=== PATIENT | male | born 1990 | race Two or more races ===

== ENCOUNTER 2021-09-01 06:22 | Emergency (ER) | payer SELFPAY ==
[~2021-09-01] VITALS: Ht 177.8 cm; Wt 76.2 kg
[2021-09-01] MEDS ORDERED: IV NS 0.9% 1,000 ML BAG IV ONE (07:30)
[2021-09-01] MEDS ORDERED: METOCLOPRAMIDE HCL 10 MG/2 ML VIAL IV ONE (07:30)
[2021-09-01] MEDS ORDERED: KETOROLAC TROMETHAMINE INJ 60 MG/2 ML VIAL IM ONE (07:30)
[2021-09-01] MEDS ORDERED: diphenhydrAMINE HCL 50 MG/ML VIAL IV ONE (07:30)
[2021-09-01] MEDS ORDERED: KETOROLAC TROMETHAMINE INJ 30 MG/ML VIAL ONE (07:53)
[2021-09-01] MEDS ORDERED: diphenhydrAMINE HCL 50 MG/ML VIAL ONE (07:53)
[2021-09-01] MEDS ORDERED: METOCLOPRAMIDE HCL 10 MG/2 ML VIAL ONE (07:53)
--- NOTE | 2021-09-01 08:00 | NUR ---
PATY 89 FROM HOME FOR C/O H/A. RATES PAIN 8/10. IN ROOM AIR AND DENIES SOB. RESPIRATION REGULAR AND UNLABORED. WILL CONTINUE TO MONITOR THE PATIENT.
--- NOTE | 2021-09-01 11:11 | NUR ---
The patient is alert and oriented x4. Denies pain. In room air and denies SOB. Respiration regular and unlabored. IV removed. Catheter intact and site benign. Pressure and 4x4 applied to site. No bleeding noted.Patient discharged to home in stable condition. Written and verbal after care instructions given. Patient verbalizes understanding of instruction.
[2021-09-01 11:12] VITALS: BP 126/76
== END 2021-09-01 11:12 | disposition home or self-care (01) ==
LOC: ER 06:24
DX: G43.909 Migraine, unspecified, not intractable, without status migrainosus (principal)
CPT/HCPCS: 96361; 96372; 96374; 96375; 99284; J1200; J1885; J2765; J7030 ×2

== ENCOUNTER 2023-09-18 04:53 | Emergency (ER) | payer SELFPAY ==
[~2023-09-18] VITALS: Ht 177.8 cm; Wt 79.4 kg
[2023-09-18] MEDS ORDERED: LORAZEPAM INJ 2 MG/ML VIAL ONE (06:34)
[2023-09-18] MEDS: LORAZEPAM INJ 2 MG/ML VIAL IV ONE (06:44)
[2023-09-18 07:11] LABS: BASOPHILS # (AUTO) 0.1 K/uL (0.0-0.2); BASOPHILS % (AUTO) 2.5 % (0.0-2.0); EOSINOPHILS # (AUTO) 0.1 K/uL (0.0-0.7); EOSINOPHILS % (AUTO) 2.7 % (0.0-6.0); HEMATOCRIT 44 % (39-51); HEMOGLOBIN 15.8 g/dL (13.5-17.5); LYMPHOCYTES # (AUTO) 2.3 K/uL (0.8-4.8); LYMPHOCYTES % (AUTO) 42.7 % (20.0-44.0); MEAN CORPUSCULAR HEMOGLOBIN 32 PG (26.0-33.0); MEAN CORPUSCULAR HGB CONC 36 g/dl (31.0-36.0); MEAN CORPUSCULAR VOLUME 90 fL (80-96); MONOCYTES # (AUTO) 0.3 K/uL (0.1-1.30); NEUTROPHILS # (AUTO) 2.5 K/uL (1.8-8.9); NEUTROPHILS % (AUTO) 46.1 % (43.0-81.0); PLATELET COUNT (AUTO) 258 K/uL (150-450); RED BLOOD CELL COUNT(AUTO) 4.92 MIL/uL (4.5-6.0); RED CELL DISTRIBUTION WIDTH 13.5 % (11.5-15.0); WHITE BLOOD COUNT (AUTO) 5.5 K/uL (4.3-11.0)
[2023-09-18 07:43] LABS: ALANINE AMINOTRANSFERASE 257 U/L (12-78); ALBUMIN 4.3 g/dL (3.4-5.0); ALKALINE PHOSPHATASE 143 U/L (46-116); ASPARTATE AMINOTRANSFERASE 124 U/L (15-37); BILIRUBIN,DIRECT 0.3 mg/dL (0.0-0.2); CALCIUM, SERUM 8.9 mg/dL (8.5-10.1); CARBON DIOXIDE 27 mmol/L (21-32); CHLORIDE 98 mmol/L (98-107); CREATININE 0.8 mg/dL (0.6-1.3); GLUCOSE 108 mg/dL (74-106); POTASSIUM 2.9 mmol/L (3.5-5.1); SODIUM SERUM 139 mmol/L (136-145); UREA NITROGEN, BLOOD 2 mg/dL (7-18)
[2023-09-18 09:33] VITALS: BP 135/82; TEMP 97.9; O2SAT 98
== END 2023-09-18 09:34 | disposition home or self-care (01) ==
LOC: ER 04:58
DX: R07.9 Chest pain, unspecified (principal); F15.10 Other stimulant abuse, uncomplicated; Z91.013 Allergy to seafood
CPT/HCPCS: 99285; 71045; 93005 ×2; 85025; 80048; 80076; 36415; 84484 ×2; J2060

== ENCOUNTER 2023-11-21 00:11 | Emergency (ER) | payer MEDICAID, OTHER ==
[~2023-11-21] VITALS: Ht 175.3 cm; Wt 83.5 kg
[2023-11-21 00:20] VITALS: TEMP 97.9
[2023-11-21] MEDS ORDERED: ONDANSETRON HCL/PF 4 MG/2 ML VIAL ONE (00:28)
[2023-11-21] MEDS: IV LR 1000 ML 1,000 ML IV ONE (00:37)
[2023-11-21] MEDS: ONDANSETRON HCL/PF - ER 4 MG/2 ML VIAL IV ONE (00:37)
[2023-11-21] MEDS ORDERED: KETOROLAC TROMETHAMINE 15 MG/ML VIAL ONE (00:38)
[2023-11-21] MEDS ORDERED: HYDROMORPHONE 1 MG/1 ML DISP.SYRIN ONE (00:39)
[2023-11-21] MEDS: HYDROMORPHONE 1 MG/1 ML DISP.SYRIN IV ONE (00:44)
[2023-11-21] MEDS: KETOROLAC TROMETHAMINE 15 MG/ML VIAL IV ONE (00:44)
[2023-11-21 00:46] LABS: BASOPHILS # (AUTO) 0.1 K/uL (0.0-0.2); BASOPHILS % (AUTO) 1.7 % (0.0-2.0); EOSINOPHILS # (AUTO) 0.2 K/uL (0.0-0.7); EOSINOPHILS % (AUTO) 3.5 % (0.0-6.0); HEMATOCRIT 45 % (39-51); HEMOGLOBIN 16.1 g/dL (13.5-17.5); LYMPHOCYTES # (AUTO) 1.7 K/uL (0.8-4.8); MEAN CORPUSCULAR HEMOGLOBIN 33 PG (26.0-33.0); MEAN CORPUSCULAR HGB CONC 36 g/dl (31.0-36.0); MEAN CORPUSCULAR VOLUME 93 fL (80-96); MONOCYTES # (AUTO) 0.4 K/uL (0.1-1.30); MONOCYTES % (AUTO) 7.5 % (2.0-12.0); NEUTROPHILS # (AUTO) 2.6 K/uL (1.8-8.9); NEUTROPHILS % (AUTO) 53.3 % (43.0-81.0); PLATELET COUNT (AUTO) 187 K/uL (150-450); RED BLOOD CELL COUNT(AUTO) 4.88 MIL/uL (4.5-6.0); RED CELL DISTRIBUTION WIDTH 14.9 % (11.5-15.0); WHITE BLOOD COUNT (AUTO) 4.9 K/uL (4.3-11.0)
[2023-11-21 01:34] LABS: CALCIUM, SERUM 8.1 mg/dL (8.5-10.1); CREATININE 0.7 mg/dL (0.6-1.3); POTASSIUM 3.4 mmol/L (3.5-5.1)
[2023-11-21] MEDS ORDERED: ONDA4TAB5 PO (02:01)
[2023-11-21] MEDS ORDERED: LOPE2CAP40 PO (02:01)
[2023-11-21] MEDS ORDERED: DICY20TA11 PO (02:01)
[2023-11-21 02:03] LABS: ALBUMIN 4.2 g/dL (3.4-5.0); BILIRUBIN,DIRECT 0.3 mg/dL (0.0-0.2); BILIRUBIN,TOTAL 0.7 mg/dL (0.2-1.0); TOTAL PROTEIN, SERUM 8.2 g/dL (6.4-8.2)
[2023-11-21 02:31] VITALS: BP 134/96; O2SAT 98
== END 2023-11-21 02:32 | disposition home or self-care (01) ==
LOC: ER 00:13
DX: R10.32 Left lower quadrant pain (principal); R11.2 Nausea with vomiting, unspecified; R19.7 Diarrhea, unspecified; R94.31 Abnormal electrocardiogram [ECG] [EKG]; Z90.49 Acquired absence of other specified parts of digestive tract; F10.10 Alcohol abuse, uncomplicated; F15.10 Other stimulant abuse, uncomplicated; Z91.013 Allergy to seafood; Y90.9 Presence of alcohol in blood, level not specified
CPT/HCPCS: 99285; 74176; 96374; 71045; 96361; 96375 ×2; 93005; 85025; 80048; 83690; 80076; 36415; J2405 ×2; J7120; J1170; J1885

== ENCOUNTER 2023-12-20 00:15 | Emergency (ER) | payer MEDICAID ==
[~2023-12-20] VITALS: Ht 165.1 cm; Wt 72.6 kg
[~2023-12-20 00:15] MED LIST changes: -CETI1TAB9 PO
[2023-12-20 00:22] VITALS: BP 117/75; TEMP 98.7; O2SAT 95
[2023-12-20] MEDS ORDERED: CETI1TAB9 PO (00:36)
[2023-12-20] MEDS ORDERED: ACETAMINOPHEN 325 MG TABLET ONE (01:09)
[2023-12-20] MEDS: ACETAMINOPHEN 325 MG TABLET PO ONE (01:14)
== END 2023-12-20 01:20 | disposition home or self-care (01) ==
LOC: ER 00:18
DX: J34.89 Other specified disorders of nose and nasal sinuses (principal); R09.81 Nasal congestion; Z90.49 Acquired absence of other specified parts of digestive tract; Z91.013 Allergy to seafood

== ENCOUNTER → 2023-12-20 | Emergency (ER) | payer MEDICAID ==
[~2023-12-20] VITALS: Ht 165.1 cm; Wt 72.6 kg
[~2023-12-20] MED LIST: CETI1TAB9 PO; DICY20TA11 PO; LOPE2CAP40 PO; ONDA4TAB5 PO
[2023-12-20 03:34] VITALS: BP 155/98; TEMP 98.7; O2SAT 98
[2023-12-20 03:48] LABS: BASOPHILS # (AUTO) 0.1 K/uL (0.0-0.2); BASOPHILS % (AUTO) 1.4 % (0.0-2.0); EOSINOPHILS # (AUTO) 0.7 K/uL (0.0-0.7); EOSINOPHILS % (AUTO) 9.7 % (0.0-6.0); HEMATOCRIT 45 % (39-51); HEMOGLOBIN 16.3 g/dL (13.5-17.5); LYMPHOCYTES % (AUTO) 40.4 % (20.0-44.0); MEAN CORPUSCULAR HEMOGLOBIN 33 PG (26.0-33.0); MEAN CORPUSCULAR HGB CONC 36 g/dl (31.0-36.0); MEAN CORPUSCULAR VOLUME 93 fL (80-96); MONOCYTES # (AUTO) 0.4 K/uL (0.1-1.30); MONOCYTES % (AUTO) 4.7 % (2.0-12.0); NEUTROPHILS # (AUTO) 3.3 K/uL (1.8-8.9); NEUTROPHILS % (AUTO) 43.8 % (43.0-81.0); PLATELET COUNT (AUTO) 392 K/uL (150-450); RED BLOOD CELL COUNT(AUTO) 4.88 MIL/uL (4.5-6.0); RED CELL DISTRIBUTION WIDTH 12.9 % (11.5-15.0); WHITE BLOOD COUNT (AUTO) 7.5 K/uL (4.3-11.0)
[2023-12-20 04:18] LABS: CALCIUM, SERUM 9.2 mg/dL (8.5-10.1); CREATININE 0.6 mg/dL (0.6-1.3); POTASSIUM 3.4 mmol/L (3.5-5.1)
[2023-12-20 04:22] LABS: ALBUMIN 4.2 g/dL (3.4-5.0); BILIRUBIN,DIRECT 0.2 mg/dL (0.0-0.2); BILIRUBIN,TOTAL 0.5 mg/dL (0.2-1.0); TOTAL PROTEIN, SERUM 8.1 g/dL (6.4-8.2)
== END | disposition home or self-care (01) ==
LOC: ER 02:34
DX: F10.129 Alcohol abuse with intoxication, unspecified (principal); Z91.013 Allergy to seafood; Y90.8 Blood alcohol level of 240 mg/100 ml or more
CPT/HCPCS: 36415; 80048-TC; 80076-TC; 85025-TC; G0480

== ENCOUNTER 2023-12-27 10:28 | Emergency (ER) | payer MEDICAID ==
[~2023-12-27] VITALS: Ht 167.6 cm; Wt 49.9 kg
[~2023-12-27 10:28] MED LIST changes: +CETI1TAB9 PO
[2023-12-27] MEDS: IBUPROFEN 600 MG TABLET PO ONE (10:53)
[2023-12-27 10:58] VITALS: BP 128/68; TEMP 98.7; O2SAT 99
== END 2023-12-27 10:58 | disposition home or self-care (01) ==
LOC: ER 10:32
DX: R10.9 Unspecified abdominal pain (principal); M54.50 Low back pain, unspecified; F19.10 Other psychoactive substance abuse, uncomplicated; Z90.89 Acquired absence of other organs; Z91.013 Allergy to seafood

== ENCOUNTER 2024-09-15 02:21 | Emergency (ER) | payer MEDICAID, OTHER | END 2024-09-15 04:13 | disposition left against medical advice (07) | LOC: ER 02:28 | DX: R10.9 Unspecified abdominal pain (principal); Z53.21 Procedure and treatment not carried out due to patient leaving prior to being seen by health care provider ==